=== PATIENT | female | born 2000 | race Caucasian/White ===

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

== ENCOUNTER 2019-11-04 09:58 | Emergency (ER) | payer BC ==
[~2019-11-04] VITALS: Ht 167.6 cm; Wt 123.8 kg
[2019-11-04 10:08] VITALS: BP 123/71
--- NOTE | 2019-11-04 10:30 | NUR ---
PT. REPORTS SOB WITH HX OF ASTHMA. STATES "I WOULDN'T EVEN BE HERE IF I HAD MY NEBULIZER MASK AND TUBING BUT MY DOG GOT TO THEM". PT. DENIES ANY CP. RIVERA MAURO IN TO EVAL PT. AND DISCUSS POC. CONTINUOUS PULSE OX PLACED. RA SAT 97%.
[2019-11-04] MEDS ORDERED: ALBUTEROL SULFATE 2.5 MG/3 ML ONE (10:51)
[2019-11-04] MEDS ORDERED: ALBUTEROL SULFATE 2.5 MG/3 ML NPPB ONE (11:00)
== END 2019-11-04 11:23 | disposition home or self-care (01) ==
LOC: ED 11:16
DX: J45.31 Mild persistent asthma with (acute) exacerbation (principal); H65.02 Acute serous otitis media, left ear; B34.9 Viral infection, unspecified; F17.200 Nicotine dependence, unspecified, uncomplicated
CPT/HCPCS: 71046; 94640; 99283; J7512; J7613